=== PATIENT | male | born 1960 | race Caucasian/White ===

== ENCOUNTER 2020-11-14 20:51 | Emergency (ER) | payer BC ==
--- NOTE | 2020-11-14 21:54 | EDM.PDOC ---
ED HPI GENERAL MEDICAL PROBLEM - General Chief Complaint: General Stated Complaint: FAINTED Time Seen by Provider: 11/14/20 21:38 Source of Information: Reports: Patient, Family, RN Notes Reviewed History Limitations: Reports: No Limitations - History of Present Illness INITIAL COMMENTS - FREE TEXT/NARRATIVE: 60-year-old gentleman presents emergency department today complaint of syncopal event, happened while he was going up the stairs he felt somewhat faint he got midway up the stairs was able to get to a landing did not completely pass out. Was able to get down the stairs on his backside laid on the floor for about 10 minutes he felt dizzy at the time. However all of his symptoms now have resolved Bilateral Hand Pain Score (Numeric/FACES): 4 - Related Data Allergies Allergy/AdvReac Type Severity Reaction Status Date / Time Penicillins Allergy Hives Verified 11/14/20 21:08 Home Meds: Home Meds Multivitamin [Multi-Vitamin Daily] 1 tab PO DAILY 11/14/20 [History] Past Medical History Musculoskeletal History: Reports: Arthritis, Other (See Below) Other Musculoskeletal History: left ulnar surgery pending - Infectious Disease History Infectious Disease History: Reports: Chicken Pox, Measles, Mumps - Past Surgical History Musculoskeletal Surgical History: Reports: None, Other (See Below) Other Musculoskeletal Surgeries/Procedures:: left achilles rupture repair Social & Family History - Tobacco Use Tobacco Use Status *Q: Never Tobacco User Second Hand Smoke Exposure: No - Caffeine Use Caffeine Use: Reports: Coffee - Recreational Drug Use Recreational Drug Use: No ED ROS GENERAL - Review of Systems Review Of Systems: See Below Constitutional: Reports: No Symptoms HEENT: Reports: No Symptoms Respiratory: Reports: No Symptoms Cardiovascular: Reports: Syncope GI/Abdominal: Reports: No Symptoms : Reports: No Symptoms Musculoskeletal: Reports: No Symptoms ED EXAM, GENERAL - Physical Exam Exam: See Below Exam Limited By: No Limitations General Appearance: Alert, WD/WN, No Apparent Distress Respiratory/Chest: No Respiratory Distress, Lungs Clear, Normal Breath Sounds, No Accessory Muscle Use, Chest Non-Tender Cardiovascular: Regular Rate, Rhythm, No Murmur GI/Abdominal: Soft, Non-Tender Course - Vital Signs Last Recorded V/S: Last Vital Signs Temp 97.6 F 11/14/20 21:13 Pulse 63 11/14/20 21:13 Resp 13 11/14/20 21:13 BP 131/85 11/14/20 21:13 Pulse Ox 96 11/14/20 21:13 - Orders/Labs/Meds Orders: Active Orders 24 hr Category Date Time Status Cardiac Monitoring [RC] .As Directed Care 11/14/20 21:51 Active Labs: Laboratory Tests 11/14/20 11/14/20 Range/Units 22:00 22:00 WBC 8.1 (4.5-11.0) K/uL RBC 4.71 (4.30-5.90) M/uL Hgb 14.6 (12.0-15.0) g/dL Hct 41.7 (40.0-54.0) % MCV 89 (80-98) fL MCH 31 (27-31) pg MCHC 35 (32-36) % Plt Count 203 (150-400) K/uL Neut % (Auto) 68.9 H (36-66) % Lymph % (Auto) 18.8 L (24-44) % [place] % (Auto) 9.3 H (2-6) % Eos % (Auto) 2.8 (2-4) % Baso % (Auto) 0.2 (0-1) % Sodium 138 L (140-148) mmol/L Potassium 3.9 (3.6-5.2) mmol/L Chloride 102 (100-108) mmol/L Carbon Dioxide 29 (21-32) mmol/L Anion Gap 10.9 (5.0-14.0) mmol/L BUN 19 H (7-18) mg/dL Creatinine 1.1 (0.8-1.3) mg/dL Est Cr Clr Drug Dosing 74.16 mL/min Estimated GFR (MDRD) > 60 (>60) Glucose 111 H (74-106) mg/dL Calcium 9.0 (8.5-10.1) mg/dL Total Bilirubin 0.5 (0.2-1.0) mg/dL AST 26 (15-37) U/L ALT 40 (12-78) U/L Alkaline Phosphatase 61 (46-116) U/L Troponin I < 0.017 (0.000-0.056) ng/mL Total Protein 6.7 (6.4-8.2) g/dL Albumin 3.4 (3.4-5.0) g/dL Globulin 3.3 (2.3-3.5) g/dL Albumin/Globulin Ratio 1.0 L (1.2-2.2) Departure - Departure Time of Disposition: 22:41 Disposition: Home, Self-Care 01 Condition: Fair Clinical Impression: Near syncope - Discharge Information Instructions: Near-Syncope, [id number] Referrals: PCP,None [Primary Care Provider] - Forms: ED Department Discharge Additional Instructions: Please follow-up with your primary care upon return home consider Holter monitor or event monitor with further evaluation call or return to the emergency department worsening of symptoms. Sepsis Event Note (ED) - Focused Exam Vital Signs: Vital Signs Temp Pulse Resp BP Pulse Ox 11/14/20 21:13 97.6 F 63 13 131/85 96 - My Orders Last 24 Hours: My Active Orders 11/14/20 21:51 Cardiac Monitoring [RC] .As Directed - Assessment/Plan Last 24 Hours: My Active Orders 11/14/20 21:51 Cardiac Monitoring [RC] .As Directed Plan: Assessment Acuity = acute Site and laterality = near syncope Etiology = unknown Manifestations = none Location of injury = Home Lab values = CBC, CMP, troponin all unremarkable EKG done by EMS reviewed by myself shows no acute process no ST elevations or depressions Plan 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
== END 2020-11-14 23:08 | disposition home or self-care (01) ==
LOC: JP.ED 20:51
DX: R55 Syncope and collapse (principal); Z88.0 Allergy status to penicillin
CPT/HCPCS: 36415; 80053; 84484; 85025; 99284

== ENCOUNTER 2020-11-19 11:23 | Emergency (ER) | payer BC ==
--- NOTE | 2020-11-19 12:23 | EDM.PDOC ---
ED HPI GENERAL MEDICAL PROBLEM - General Chief Complaint: General Stated Complaint: LIGHTHEADED,ARMS WEAK, BUZZING IN HEAD Time Seen by Provider: 11/19/20 12:23 Source of Information: Reports: Patient, RN Notes Reviewed History Limitations: Reports: No Limitations - History of Present Illness INITIAL COMMENTS - FREE TEXT/NARRATIVE: Darius presents today for complaints of palpitations and syncopal episode this am. Last syncopal episode 5 days ago. He states he cam in to the emergency room via EMS on 11/14/2020 for a similar event. He states he had an episode where he passed out and fell to the floor. He states he develops dryness of the mouth, feels woozy and trembling inside without shaking of hands. He reports buzzing in ears like a hum. Darius states last Thursday he had the hum in his ears for several hours after he passed out. He reports sensation of palpitations, denies chest pain, SOB, difficulty breathing, nausea, vomiting, change in bowel/bladder or other concerns. He has not tried any OTC medications or treatments. Recent ER visit 11/14/2020 for syncopal episode. EKG, CBC, CMP, troponin with not acute findings. Patient reports significant family history of cardiac valve issues, stenosis, CAD on his maternal and paternal sides. History of Parkinson disease with his mother and maternal grandmother. - Related Data Allergies Allergy/AdvReac Type Severity Reaction Status Date / Time Penicillins Allergy Hives Verified 11/19/20 11:48 Home Meds: Home Meds Multivitamin [Multi-Vitamin Daily] 1 tab PO DAILY 11/14/20 [History] Past Medical History Musculoskeletal History: Reports: Arthritis, Other (See Below) Other Musculoskeletal History: left ulnar surgery pending - Infectious Disease History Infectious Disease History: Reports: Chicken Pox, Measles, Mumps - Past Surgical History Musculoskeletal Surgical History: Reports: None, Other (See Below) Other Musculoskeletal Surgeries/Procedures:: left achilles rupture repair Social & Family History - Tobacco Use Tobacco Use Status *Q: Never Tobacco User - Caffeine Use Caffeine Use: Reports: Coffee - Recreational Drug Use Recreational Drug Use: No ED ROS GENERAL - Review of Systems Review Of Systems: See Below Constitutional: Reports: No Symptoms HEENT: Reports: No Symptoms Respiratory: Reports: No Symptoms Cardiovascular: Reports: Lightheadedness, Palpitations, Syncope. Denies: Chest Pain, Blood Pressure Problem, Claudication, Dyspnea on Exertion, Edema, Orthopnea, PND Endocrine: Reports: No Symptoms GI/Abdominal: Reports: No Symptoms : Reports: No Symptoms Musculoskeletal: Reports: No Symptoms Skin: Reports: No Symptoms Neurological: Reports: No Symptoms Psychiatric: Reports: No Symptoms Hematologic/Lymphatic: Reports: No Symptoms Immunologic: Reports: No Symptoms ED EXAM, GENERAL - Physical Exam Exam: See Below Exam Limited By: No Limitations General Appearance: Alert, WD/WN, No Apparent Distress Eye Exam: Bilateral Eye: Normal Inspection, PERRL Ears: Normal External Exam, Normal Canal, Hearing Grossly Normal, Normal TMs Throat/Mouth: Normal Inspection, Normal Lips, Normal Teeth, Normal Gums, Normal Oropharynx, Normal Voice, No Airway Compromise Head: Atraumatic, Normocephalic Neck: Normal Inspection, Supple, Non-Tender, Full Range of Motion. No: Lymphadenopathy (R), Lymphadenopathy (L) Respiratory/Chest: No Respiratory Distress, Lungs Clear, Normal Breath Sounds, No Accessory Muscle Use, Chest Non-Tender. No: Decreased Breath Sounds, Crackles, Rales, Rhonchi, Wheezing, Stridor, Accessory Muscle Use, Retractions, Splinting Cardiovascular: Normal Peripheral Pulses, Regular Rate, Rhythm, No Edema, No Gallop, No Murmur, No Rub. No: Extra Beats, Friction Rub Peripheral Pulses: 4+: Radial (L), Radial (R) GI/Abdominal: Normal Bowel Sounds, Soft, Non-Tender, No Organomegaly, No Distention, No Abnormal Bruit, No Mass, Pelvis Stable. No: Guarding, Rigid, Rebound, Tender (Male) Exam: Deferred Rectal (Males) Exam: Deferred Extremities: Normal Inspection, Normal Range of Motion. No: Non-Tender, No Pedal Edema, Normal Capillary Refill Neurological: Alert, Oriented, CN II-XII Intact, Normal Cognition, Normal Gait, Normal Reflexes, No Motor/Sensory Deficits Psychiatric: Normal Affect, Normal Mood Skin Exam: Warm, Dry, Intact, Normal Color, No Rash Lymphatic: No Adenopathy #1 Interpretation EKG Date: 11/19/20 Time: 13:42 Rhythm: NSR Rate (Beats/Min): 52 [place]: Other (borderline left axis deviation) P-Wave: Present QRS: Normal ST-T: Normal QT: Normal Comparison: No Change Course - Vital Signs Last Recorded V/S: Last Vital Signs Temp 36.4 C 11/19/20 11:51 Pulse 74 11/19/20 11:51 Resp 16 11/19/20 11:51 BP 150/87 H 11/19/20 11:51 Pulse Ox 98 11/19/20 11:51 - Orders/Labs/Meds Orders: Active Orders 24 hr Category Date Time Status EKG 12 Lead [EK] Routine Ther 11/19/20 13:00 Ordered Labs: Laboratory Tests 11/19/20 11/19/20 11/19/20 Range/Units 13:15 13:15 13:48 WBC 7.2 (4.5-11.0) K/uL RBC 4.68 (4.30-5.90) M/uL Hgb 14.8 (12.0-15.0) g/dL Hct 41.7 (40.0-54.0) % MCV 89 (80-98) fL MCH 32 H (27-31) pg MCHC 36 (32-36) % Plt Count 211 (150-400) K/uL Neut % (Auto) 74.8 H (36-66) % Lymph % (Auto) 16.3 L (24-44) % [place] % (Auto) 7.9 H (2-6) % Eos % (Auto) 0.7 L (2-4) % Baso % (Auto) 0.3 (0-1) % Sodium 137 L (140-148) mmol/L Potassium 4.4 (3.6-5.2) mmol/L Chloride 103 (100-108) mmol/L Carbon Dioxide 30 (21-32) mmol/L Anion Gap 8.4 (5.0-14.0) mmol/L BUN 15 (7-18) mg/dL Creatinine 1.1 (0.8-1.3) mg/dL Est Cr Clr Drug Dosing 74.16 mL/min Estimated GFR (MDRD) > 60 (>60) Glucose 112 H (74-106) mg/dL Calcium 9.1 (8.5-10.1) mg/dL Total Bilirubin 0.5 (0.2-1.0) mg/dL AST 21 (15-37) U/L ALT 35 (12-78) U/L Alkaline Phosphatase 57 (46-116) U/L Troponin I < 0.017 (0.000-0.056) ng/mL Total Protein 6.7 (6.4-8.2) g/dL Albumin 3.6 (3.4-5.0) g/dL Globulin 3.1 (2.3-3.5) g/dL Albumin/Globulin Ratio 1.2 (1.2-2.2) Urine Color Yellow (YELLOW) Urine Appearance Clear (CLEAR) Urine pH 7.0 (5.0-8.0) Ur Specific [place] 1.015 (1.008-1.030) Urine Protein Negative (NEGATIVE) mg/dL Urine Glucose (UA) Negative (NEGATIVE) mg/dL Urine Ketones Negative (NEGATIVE) mg/dL Urine Occult Blood Negative (NEGATIVE) Urine Nitrite Negative (NEGATIVE) Urine Bilirubin Negative (NEGATIVE) Urine Urobilinogen 0.2 (0.2-1.0) EU/dL Ur Leukocyte Esterase Negative (NEGATIVE) Urine RBC Not seen (0-5) Urine WBC Not seen (0-5) Ur Epithelial Cells Not seen Amorphous Sediment Rare Urine Bacteria Not seen Urine Mucus Not seen Patient lab work reviewed, no acute findings noted. Most recent troponin negative on 11/14/2020. Sodium 137 EKG negative x 2, chest x-ray today negative for acute findings. Lab, EKG, x-ray and previous ER notes all reviewed with patient. No syncope, ab normalities via telemetry noted while in the emergency room. Assessment, lab findings reviewed with Dr. Larios he is in agreement with plan. He is advised to follow up in the clinic with appointment as scheduled. His new primary will want to consider use of holter monitor, stress test as appropriate. Patient and his in agreement with plan. Departure - Departure Time of Disposition: 14:23 Disposition: Home, Self-Care 01 Condition: Good Clinical Impression: Hypokalemia, Palpitations, Syncopal episodes - Discharge Information Referrals: Jaja Mayen MD [Primary Care Provider] - Forms: ED Department Discharge Additional Instructions: You have been evaluated and treated for palpitations and syncopal episodes. Chest x-ray, EKG are normal. Lab work reviewed, with no significant acute issues. Troponin negative. Your sodium level is slightly low. Drink one 20oz bottle gatorade sugar free per day. Work on increase of water intake. Keep track of palpitations sensations, fluid intake and diet. Follow up with clinic appointment as scheduled. They will want to consider need of holter monitor and/or cardiac stress test. Return for any worsening, issues or concerns. Sepsis Event Note (ED) - Evaluation Sepsis Screening Result: No Definite Risk - Focused Exam Vital Signs: Vital Signs Temp Pulse Resp BP Pulse Ox 11/19/20 11:51 36.4 C 74 16 150/87 H 98 11/19/20 11:46 36.4 C 74 16 150/87 H 98 - My Orders Last 24 Hours: My Active Orders 11/19/20 13:00 EKG 12 Lead [EK] Routine - Assessment/Plan Last 24 Hours: My Active Orders 11/19/20 13:00 EKG 12 Lead [EK] Routine Assessment:: Hypokalemia, Palpitations, Syncopal episodes Darius is an alert and oriented 60 year old male with syncopal episode x 3 the past 5 days. No acute findings per lab work completed 11/14/2020 and today. Normal chest x-ray and EKG today. No abnormal findings via telemetry while in emergency room. Plan: evaluated and treated for palpitations and syncopal episodes. Chest x-ray, EKG are normal. Lab work reviewed, with no significant acute issues. Troponin negative. Sodium level is slightly low. Drink one 20oz bottle gatorade sugar free per day. Work on increase of water intake. Keep track of palpitations sensations, fluid intake and diet. Follow up with clinic appointment as scheduled. They will want to consider need of holter monitor and/or cardiac stress test. Return for any worsening, issues or concerns.
--- NOTE | 2020-11-19 14:31 | CR ---
CHEST: 2 view CLINICAL HISTORY:Palpitations COMPARISON:None FINDINGS: The heart size, pulmonary vascularity and hilar structures are normal. No infiltrate effusion or pneumothorax is seen. IMPRESSION: No acute cardiopulmonary process.
== END 2020-11-19 14:52 | disposition home or self-care (01) ==
LOC: JP.ED 11:23
DX: E87.6 Hypokalemia (principal); R00.2 Palpitations; R55 Syncope and collapse; M19.90 Unspecified osteoarthritis, unspecified site; Z88.0 Allergy status to penicillin
CPT/HCPCS: 36415; 71046; 71046-26; 80053; 81001; 84484; 85025; 93005; 99284-25

== ENCOUNTER 2021-09-12 09:04 | Day surgery (SDC) | payer BC ==
[2021-09-12] MEDS ORDERED: Midazolam 1 MG/ML 2 ML SDV ONE (09:47)
[2021-09-12] MEDS ORDERED: fentaNYL 100 MCG/2 ML SDV ONE (09:47)
[2021-09-12] MEDS ORDERED: Propofol 200 MG/20 ML SDV ONE ×2 (09:48→11:37)
[2021-09-12] MEDS: Lactated Ringers 1,000 ML IV SCH (10:04)
== END 2021-09-12 12:50 | disposition home or self-care (01) ==
LOC: JP.SDS 09:04
PROVIDERS: ATTEND Family Medicine
DX: Z12.11 Encounter for screening for malignant neoplasm of colon (principal); D12.2 Benign neoplasm of ascending colon; E78.5 Hyperlipidemia, unspecified; Z88.0 Allergy status to penicillin
CPT/HCPCS: 45380; J2250; J2704; J3010; J7120

== ENCOUNTER 2023-03-10 10:45 | Emergency (ER) | payer BC, MEDICARE ==
[2023-03-10 11:06] LABS: BASOPHILS ABSOLUTE AUTO 0.03 K/uL (0.00-0.10); BASOPHILS PERCENT AUTO 0.6 % (0.1-1.3); HEMATOCRIT 44.5 % (38.4-49.7); HEMOGLOBIN 16.2 g/dL (12.9-16.9); IMMATURE GRAN PERCENT AUTO 0.2 % (0.0-0.7); LYMPHOCYTES ABSOLUTE AUTO 1.74 K/uL (0.8-3.3); LYMPHOCYTES PERCENT AUTO 34.7 % (11.4-47.7); MEAN CORPUSCULAR HEMOGLOBIN 32.8 pg (31.6-35.5); MEAN CORPUSCULAR HGB CONC 36.4 g/dL (31.6-35.5); MEAN CORPUSCULAR VOLUME 90.1 fL (81.4-99.0); MONOCYTES ABSOLUTE AUTO 0.43 K/uL (0.20-0.90); MONOCYTES PERCENT AUTO 8.6 % (3.3-12.6); NEUTROPHILS PERCENT AUTO 53.9 % (40.0-78.1); PLATELET COUNT,PLT 186 K/uL (130-375); RED BLOOD CELL COUNT 4.94 M/uL (4.14-5.76)
[2023-03-10 11:08] LABS: IMMATURE GRAN ABSOLUTE AUTO 0.01 K/uL (0.00-0.23)
[2023-03-10 11:31] LABS: A/G RATIO 0.9 (1.2-2.2); ALANINE AMINOTRANSFERASE,ALT 78 U/L (12-78); ALBUMIN 3.5 g/dL (3.4-5.0); ALKALINE PHOSPHATASE 59 U/L (46-116); ASPARTATE AMNIOTRANSFERASE,AST 43 U/L (15-37); BILIRUBIN TOTAL 0.7 mg/dL (0.2-1.0); BLOOD UREA NITROGEN,BUN 16 mg/dL (7-18); CALCIUM 8.9 mg/dL (8.5-10.1); CARBON DIOXIDE,CO2 27 mmol/L (21-32); CHLORIDE,CL 103 mmol/L (100-108); CREATININE 1.2 mg/dL (0.8-1.3); EST CRCL DRUG DOSING (CG) 64.21 mL/min; ESTIMATED GFR 68 mL/min (>60); GLUCOSE RANDOM 121 mg/dL (74-106); POTASSIUM,K 4.2 mmol/L (3.6-5.2); PROTEIN TOTAL,TP 7.5 g/dL (6.4-8.2); SODIUM,NA 138 mmol/L (140-148)
[2023-03-10 11:32] LABS: ANION GAP 12.2 mmol/L (5.0-14.0)
== END 2023-03-10 12:42 | disposition home or self-care (01) ==
LOC: JP.ED 10:45
DX: R07.89 Other chest pain (principal); Z79.899 Other long term (current) drug therapy; Z79.82 Long term (current) use of aspirin; Z88.0 Allergy status to penicillin; Z88.8 Allergy status to other drugs, medicaments and biological substances
CPT/HCPCS: 36415; 80053; 83690; 84484; 85025; 93010; 99284